=== PATIENT | male | born 1990 | race African-American/Black ===

== ENCOUNTER 2016-12-01 14:10 | Emergency (ER) | payer OTHER ==
[~2016-12-01] VITALS: Ht 175.3 cm; Wt 131.9 kg
[2016-12-01] MEDS ORDERED: KETOROLAC 60MG/2ML VIAL IM ONE (18:45)
[2016-12-01 19:35] VITALS: BP 130/70
== END 2016-12-01 20:36 | disposition home or self-care (01) ==
LOC: ER 20:16
DX: S39.012A Strain of muscle, fascia and tendon of lower back, initial encounter (principal); S16.1XXA Strain of muscle, fascia and tendon at neck level, initial encounter; R51 Headache; V49.50XA Passenger injured in collision with unspecified motor vehicles in traffic accident, initial encounter; Y93.89 Activity, other specified; Y92.89 Other specified places as the place of occurrence of the external cause; Y99.8 Other external cause status
CPT/HCPCS: 96372; 99283; J1885; J7030; Z7610